=== PATIENT | male | born 1950 | race Caucasian/White ===

== ENCOUNTER → 2018-07-07 | Outpatient (CLI) | payer OTHER, MEDICARE ==
[~2018-07-07] MED LIST: GADOBUTROL 10 ML VIAL IVP ONE
== END ==
LOC: FIMAGING 10:35
PROVIDERS: ATTEND Specialist
DX: C61 Malignant neoplasm of prostate (principal); M84.859 Other disorders of continuity of bone, unspecified pelvic region and thigh
CPT/HCPCS: 72197; 76377; A9585; 82565-PO